=== PATIENT | female | born 1945 | race African-American/Black ===

== ENCOUNTER 2019-07-13 11:36 | Day surgery (SDC) | payer OTHER ==
[2019-07-07 16:02] VITALS: BMI 15.5
[2019-07-13 12:16] VITALS: TEMP 98.8
[2019-07-13] MEDS ORDERED: PROPOFOL 20 ML ONE ×2 (12:23)
[2019-07-13 14:17] VITALS: BP 129/70; PULSE 58
== END 2019-07-13 14:15 | disposition home or self-care (01) ==
LOC: FASU 11:36
PROVIDERS: ATTEND Internal Medicine Gastroenterology
DX: R10.9 Unspecified abdominal pain (principal)